=== PATIENT | male | born 1985 ===

== ENCOUNTER 2017-05-24 17:58 | Emergency (ER) | payer MEDICAID ==
[2017-05-24 18:07] VITALS: PULSE 80
--- NOTE | 2017-05-24 18:25 | C.PDOC ---
History Of Present Illness 32 y/o M presents for heroin detox. Reports chronic back pain from herniated disc but no acute fever, pain, dysuria, or dyspnea. Time Seen by Provider: 05/24/17 18:21 Chief Complaint (Nursing): Substance Abuse History Per: Patient History/Exam Limitations: no limitations Current Symptoms Are (Timing): Still Present Past Medical History Reviewed: Historical Data, Nursing Documentation, Vital Signs Vital Signs: Last Vital Signs Temp 99.1 F 05/24/17 20:34 Pulse 80 05/24/17 20:34 Resp 20 05/24/17 20:34 BP 146/93 H 05/24/17 20:34 Pulse Ox 97 05/25/17 08:22 - Medical History PMH: Anxiety, Asthma, Bronchitis Family History: States: No Known Family Hx - Social History Hx Alcohol Use: No Hx Substance Use: Yes (heroin) Review Of Systems Except As Marked, All Systems Reviewed And Found Negative. Constitutional: Negative for: Fever Cardiovascular: Negative for: Chest Pain Physical Exam - Physical Exam Additional Physical Exam Comments: Constitutional: No acute distress. Head: Normocephalic. Atraumatic. Eyes: PERRL. ENT: Moist mucous membranes. Neck: Supple. Cardiovascular: Regular rate. Radial pulse 2+ bilaterally. Chest: No tenderness. Respiratory: Clear to auscultation bilaterally. GI: Soft. Nontender. Nondistended. Back: No CVA tenderness. Musculoskeletal: No tenderness or swelling of extremities. Skin: No rash. Neurologic: Alert, no focal deficit. ED Course And Treatment - Laboratory Results Result Diagrams: 05/24/17 18:38 05/24/17 18:38 O2 Sat by Pulse Oximetry: 97 (RA) Pulse Ox Interpretation: Normal Medical Decision Making Medical Decision Making: Time: 18:38 Plan: --CMP --Urine drug screen --Alcohol serum --CBC --Urinalysis Time: 19:00 --Patient will be signed out to Dr. Wooten. Pending labs and urine. Disposition - Disposition Referrals: [facility] [Outside] [facility] [Outside] Disposition: HOME/ ROUTINE Disposition Time: 19:00 Condition: GOOD Additional Instructions: Thank you for letting us take care of you today. Your provider was Dr. Wooten. You were treated for [Diagnosis Here]. The emergency medical care you received today was directed at your acute symptoms. If you were prescribed any medication, please fill it and take as directed. It may take several days for your symptoms to resolve. Return to the Emergency Department if your symptoms worsen, do not improve, or if you have any other problems. Please contact your doctor or call one of the physicians/clinics you have been referred to that are listed on the Patient Visit Information form that is included in your discharge packet. Bring any paperwork you were given at discharge with you along with any medications you are taking to your follow up visit. Our treatment cannot replace ongoing medical care by a primary care provider (PCP) outside of the emergency department. Thank you for allowing the [facility] team to be part of your care today. Follow up with your program as scheduled. Follow up with the clinic or your primary doctor for medical follow up. Instructions: Polysubstance Abuse (ED) Forms: [employer] (Slovak) - Clinical Impression Clinical Impression: Heroin abuse - Scribe Statement The provider has reviewed the documentation as recorded by the Anderson Keita All medical record entries made by the Rajendraibsunshine were at my direction and personally dictated by me. I have reviewed the chart and agree that the record accurately reflects my personal performance of the history, physical exam, medical decision making, and the department course for this patient. I have also personally directed, reviewed, and agree with the discharge instructions and disposition.
[2017-05-24 18:41] LABS: BASO % 0.3 % (0.0-2.0); EOS # 0.1 K/uL (0.0-0.7); EOS % 1.1 % (0.0-4.0); HEMATOCRIT 43.7 % (35.0-51.0); LYMPH # 1.8 K/uL (1.0-4.3); LYMPH % 15.2 % (20.0-40.0); MEAN CELL VOLUME 90.9 fL (80.0-94.0); MEAN CORPUSCULAR HEMOGLOBIN 30.9 pg (27.0-31.0); MEAN PLATELET VOLUME 7.2 fL (7.2-11.7); MONO # 0.7 K/uL (0.0-0.8); RED CELL DISTRIBUTION WIDTH 12.9 % (11.5-14.5); WHITE BLOOD COUNT 11.7 K/uL (4.8-10.8)
[2017-05-24 18:46] LABS: RBC URINE < 1 /hpf (0-3); URINE BILIRUBIN NEGATIVE (NEGATIVE); URINE BLOOD NEGATIVE (NEGATIVE); URINE COLOR Yellow (YELLOW); URINE GLUCOSE (UA) NORMAL (Normal); URINE KETONE NEGATIVE (NEGATIVE); URINE LEUKOCYTE ESTERASE NEG Leu/uL (Negative); URINE PROTEIN NEGATIVE (NEGATIVE); URINE UROBILINOGEN NORMAL mg/dL (0.2-1.0); WBC URINE 3 /hpf (0-5)
[2017-05-24 18:55] LABS: CHLORIDE 100 mmol/L (98-107)
[2017-05-24 18:56] LABS: POTASSIUM 3.9 mmol/L (3.6-5.2); SODIUM 141 mmol/L (132-148)
[2017-05-24 18:58] LABS: GFR AFRICAN-AMERICAN > 60
[2017-05-24 18:59] LABS: ALB/GLOB RATIO 1.2 (1.0-2.1); ALKALINE PHOSPHATASE 93 U/L (38-126); ALT/SGPT 24 U/L (21-72); AST/SGOT 19 U/L (17-59); BILIRUBIN,TOTAL 0.6 mg/dL (0.2-1.3); BLOOD UREA NITROGEN 13 mg/dL (9-20); CALCIUM 9.7 mg/dl (8.6-10.4); CARBON DIOXIDE 26 mmol/L (22-30); GLUCOSE,RANDOM 93 mg/dL (75-110); TOTAL PROTEIN 7.7 g/dL (6.3-8.3)
[2017-05-24 19:00] LABS: ALCOHOL SERUM < 10 mg/dl (0-10)
[2017-05-24 20:37] VITALS: BP 146/93; RESP 20; TEMP 99.1
[2017-05-25 08:22] VITALS: O2SAT 97
== END 2017-05-24 20:36 | disposition home or self-care (01) ==
LOC: C.ER 17:58
DX: F11.10 Opioid abuse, uncomplicated (principal)